=== PATIENT | male | born 1960 ===

== ENCOUNTER 2022-05-11 21:38 | Outpatient (REF) | payer OTHER, SELFPAY ==
[2022-05-11 22:05] LABS: CREATININE 0.9 mg/dL (0.70-1.30); Estimated GFR 95.37 (mL/min/1.73m2)
== END 2022-05-11 21:39 | disposition home or self-care (01) ==
LOC: LBN 21:38
PROVIDERS: Visit Provider Family Medicine
DX: U07.1 COVID-19 (principal)
CPT/HCPCS: 82565